=== PATIENT | female | born 1970 | race Caucasian/White ===

== ENCOUNTER → 2025-07-29 09:30 | Outpatient (BNVA) | payer MEDICARE, SELFPAY | PROVIDERS: Visit Provider Student in an Organized Health Care Education/Training Program | DX: M79.89 Other specified soft tissue disorders (principal); R03.0 Elevated blood-pressure reading, without diagnosis of hypertension | CPT/HCPCS: 99204 ==

== ENCOUNTER 2025-08-10 10:13 | Day surgery (SDC) | payer MEDICARE, SELFPAY ==
[2025-08-10] VITALS (7 sets, daily range): BP systolic 91–152; BP diastolic 59–99; PULSE 72–77; RESP 17–19; TEMP 36.9; O2SAT 90–95; BMI 41.5
--- NOTE | 2025-08-10 11:08 | W.PM.OPSUD ---
Surgery/Procedure H&P Update DATE OF PROCEDURE: August 10, 2025 DATE H&P PERFORMED: 07/29/25 H&P UPDATE INFORMATION: I have reviewed H&P completed within last 30 days, I have examined patient prior to procedure, No changes to prior documentation and Risks and benefits of the procedure reviewed CHANGES TO PREVIOUS DOCUMENTATION: Surgical site marked with patient's input in preop. PLANNED PROCEDURE: Operation Date: 08/10/25 12:00 Proposed Procedures p Midline Back Soft Tissue Mass Excision 2CM 33750 M79.89(Not Applicable) - Ricardo Sanon MD
--- NOTE | 2025-08-10 11:14 | ECG_ITS ---
[facility] Test Date: 2025-08-10 Pat Name: Leena Harrington Department: Room: Gender: Female [employer] Supervisor: : 1970 Requested By: Steffen Kirby Order Number: [id number] Scott MD: Jaleesa Lynch M.D. Measurements Intervals [place] Rate: 72 P: 27 AK: 167 QRS: -28 QRSD: 171 T: 131 QT: 473 QTc: 520 Interpretive Statements SINUS RHYTHM LEFT BUNDLE BRANCH BLOCK [120+ ms QRS DURATION, 80+ ms Q/S IN V1/V2, 85+ ms R IN I/aVL/V5/V6] No previous ECG available for comparison Electronically Signed On 08-11-2025 00:08:06 JANITOR HEAD by Jaleesa Lynch M.D. [email or web address]
--- NOTE | 2025-08-10 11:16 | ANES.PREANE2 ---
Pre-Anesthetic Assessment Height/Weight: Height 5 ft 10 in Temp Pulse Resp BP Pulse Ox O2 Del Method 98.5 F 76 19 H 152/91 95 Room Air 08/10/25 11:14 08/10/25 11:14 08/10/25 11:14 08/10/25 11:14 08/10/25 11:14 08/10/25 11:14 Preop Diagnosis: Back mass Operation Date: 08/10/25 12:00 Proposed Procedures p Midline Back Soft Tissue Mass Excision 2CM [id number] M79.89(Not Applicable) - Ricardo Sanon MD Was Beta Madelin taken within 24 hours: N/A Was Clonidine taken within 24 hours: N/A Social Tobacco and No alcohol Exam alert, oriented x 3, clear to auscultation bilaterally and regular rate & rhythm Airway Submandibular: within normal limits Cervical ROM: within normal limits Mallampati: Class III Comments: Comments: Partial removed from bottom, top plate Anesthetic Plan ASA status: 3 Anesthesia: Choice Other: No prior issues with anesthesia NPO since yesterday evening Current smoker, COPD Denies any cardiac issues Patient does admit to SOB with exertion. States she has gained 72 pounds over the last year and today have done a full workup and cannot find anything wrong with her EKG ordered Medications/Allergies Home Medications ?Medication ?Instructions ?Recorded ?Confirmed ?Last Taken ?Type acetaminophen 325 mg tablet 325 mg PO QID PRN Pain, Mild 07/29/25 08/09/25 08/07/25 History (Tylenol) ibuprofen 200 mg tablet 200 mg PO Q6H PRN Pain, Mild 07/29/25 08/09/25 08/07/25 History Allergies Allergy/AdvReac Type Severity Reaction Status Date / Time acetaminophen (From [place]) Allergy ALGY-Anaphy Verified 08/09/25 10:50 laxis amoxicillin Allergy Unknown Verified 08/09/25 10:50 ampicillin Allergy Unknown Verified 08/09/25 10:50 hydrocodone (From [place]) Allergy ALGY-Anaphy Verified 08/09/25 10:50 laxis latex Allergy ALGY-Bliste Verified 08/09/25 10:50 r Current Medications Generic Name Dose Route Start Last Admin Trade Name Freq PRN Reason Stop Dose Admin Sodium Chloride 1,000 mls @ 30 mls/hr 08/10/25 10:45 08/10/25 10:56 Sodium Chloride 0.9% IV 08/11/25 10:44 30 mls/hr .Q24H KELLEE Administration PFSH Anesthesia Family History (Updated 07/29/25 @ 09:42 by NORAH Shaffer) Mother Breast cancer Social History (Updated 07/29/25 @ 09:42 by NORAH Shaffer) Smoking and tobacco/nicotine status: current every day tobacco/nicotine user cigarettes
[2025-08-10] MEDS: lidocaine-epi 1% 20 mL INJ INJECTION (11:50)
--- NOTE | 2025-08-10 11:58 | PM.OP ---
Operative Report Date of procedure: August 10, 2025 Pre-op diagnosis: Soft tissue mass of back Post-op diagnosis: same Post-op findings: Soft tissue mass of back 2 x 2 cm Procedure done: Soft tissue mass excision of back Implants: N/A Specimens removed/disposition: Soft tissue mass of back sent to pathology Pathology: Soft tissue mass of back sent to pathology Surgeon: Ricardo Sanon MD [employer] Solar [employer] Designer: ANN-MARIE Anesthesia: MAC Estimated blood loss (mL): 5 Complications: N/A Findings: Soft tissue mass excision of back. Resembles inclusion cyst. 5 cc of purulent fluid drained. Cultures sent Brief History: 55-year-old female who presented with a soft tissue mass excision of back. Discussed risk and benefits and patient agreed to proceed with soft tissue mass excision of back. Procedure: Consent obtained in preop area. Preoperative antibiotics administered. SCDs on and working. MAC administered. Patient placed in left lateral decubitus. The back was prepped and draped in the usual sterile fashion. A 10 blade was used to incise in the skin. 5 cc of purulent fluid was obtained. Cultures were sent. Electrocautery was used to take down to the subcutaneous tissues. Soft tissue mass 2 x 2 x 2 centimeters. It was passed off to pathology. It resembled an inclusion cyst. The wound was irrigated with 200 cc of normal saline. Deep dermal layer was closed using 2-0 Vicryl in continuous fashion. Skin was closed using multiple vertical mattress sutures as well as multiple simple sutures using 2-0 nylon. A sterile dressing was applied. The patient woke up from anesthesia without any complications.
--- NOTE | 2025-08-10 13:00 | ANE.PACU2 ---
Inpatient post-anesthesia follow up: Airway intact: Yes Vital signs: Temperature 98.5 F Pulse Rate 72 Respiratory Rate 18 Blood Pressure 127/99 Pulse Oximetry 93 Oxygen Delivery Me thod Room Air Oxygen Flow Rate Fraction of Inspir ed Oxygen Hydration adequate: Yes Nausea and vomiting: No Pain level: 1 Mental status: Baseline
== END 2025-08-10 13:00 | disposition home or self-care (01) ==
PROVIDERS: PCP Nurse Practitioner Family; Visit Provider Student in an Organized Health Care Education/Training Program
PROC: (CPT 11404; principal; 2025-08-10 11:50)
DX: R22.2 Localized swelling, mass and lump, trunk (principal); J44.9 Chronic obstructive pulmonary disease, unspecified; F17.210 Nicotine dependence, cigarettes, uncomplicated
CPT/HCPCS: 11404; 87070; 87075; 87205; 88307; 93005; J2250; J2704; J3010; J3372; J7030; J9999

== ENCOUNTER → 2025-08-25 10:44 | Outpatient (BNVA) | payer MEDICARE, SELFPAY | PROVIDERS: PCP Nurse Practitioner Family; Visit Provider Student in an Organized Health Care Education/Training Program | DX: R03.0 Elevated blood-pressure reading, without diagnosis of hypertension (principal); Z98.890 Other specified postprocedural states | CPT/HCPCS: 99213 ==